=== PATIENT | male | born 1955 | race Caucasian/White ===

== ENCOUNTER 2023-09-19 12:36 | Outpatient (CLI) | payer MEDICARE, OTHER | END 2023-09-19 12:37 | disposition home or self-care (01) | LOC: SCSMRI 12:36 | PROVIDERS: ATTEND Otolaryngology Plastic Surgery within the Head & Neck | DX: H91.21 Sudden idiopathic hearing loss, right ear (principal); H90.3 Sensorineural hearing loss, bilateral | CPT/HCPCS: 70553; 82565 ==